=== PATIENT | male | born 1970 | race Caucasian/White ===

== ENCOUNTER 2019-05-25 05:40 | Emergency (ER) | payer MEDICAID, OTHER ==
[~2019-05-25] VITALS: Ht 172.7 cm; Wt 63.5 kg
[2019-05-25 05:45] VITALS: BP 106/72
== END 2019-05-25 08:05 | disposition left against medical advice (07) ==
LOC: EDBD 05:40 → ER 05:42
DX: R09.81 Nasal congestion (principal); Z53.21 Procedure and treatment not carried out due to patient leaving prior to being seen by health care provider

== ENCOUNTER 2019-08-15 23:22 | Emergency (ER) | payer MEDICAID ==
[~2019-08-15] VITALS: Ht 172.7 cm; Wt 47.6 kg
[2019-08-16 00:05] VITALS: BP 112/83
== END 2019-08-16 06:31 | disposition left against medical advice (07) ==
LOC: ER 23:26
DX: F20.9 Schizophrenia, unspecified (principal); F14.10 Cocaine abuse, uncomplicated; F15.10 Other stimulant abuse, uncomplicated; F32.9 Major depressive disorder, single episode, unspecified

== ENCOUNTER 2019-09-15 22:11 | Emergency (ER) | payer MEDICAID ==
[~2019-09-15] VITALS: Ht 177.8 cm; Wt 65.8 kg
[2019-09-15 22:22] VITALS: BP 136/87
== END 2019-09-16 04:16 | disposition left against medical advice (07) ==
LOC: EDBD 22:11 → ER 22:16
DX: Z04.6 Encounter for general psychiatric examination, requested by authority (principal); Z53.21 Procedure and treatment not carried out due to patient leaving prior to being seen by health care provider

== ENCOUNTER 2021-11-25 23:42 | Emergency (ER) | payer MEDICAID, OTHER ==
[~2021-11-25] VITALS: Ht 165.1 cm; Wt 63.5 kg
[2021-11-26 00:25] VITALS: BP 116/77
== END 2021-11-26 03:47 | disposition left against medical advice (07) ==
LOC: EDBD 23:42 → ER 23:45
DX: R06.02 Shortness of breath (principal); R05.9 Cough, unspecified; Z53.21 Procedure and treatment not carried out due to patient leaving prior to being seen by health care provider
CPT/HCPCS: 71045; 93005

== ENCOUNTER 2022-06-22 14:58 | Emergency (ER) | payer MEDICAID ==
[~2022-06-22] VITALS: Ht 172.7 cm; Wt 65.0 kg
[2022-06-22 16:37] VITALS: BP 120/54
== END 2022-06-22 18:15 | disposition left against medical advice (07) ==
LOC: ER 14:58
DX: Z48.00 Encounter for change or removal of nonsurgical wound dressing (principal); Z53.21 Procedure and treatment not carried out due to patient leaving prior to being seen by health care provider

== ENCOUNTER 2022-06-28 03:37 | Emergency (ER) | payer MEDICAID ==
[~2022-06-28] VITALS: Ht 170.2 cm; Wt 75.0 kg
[2022-06-28 05:15] VITALS: BP 136/74
== END 2022-06-28 07:21 | disposition home or self-care (01) ==
LOC: ER 03:41
DX: F20.9 Schizophrenia, unspecified (principal); F17.210 Nicotine dependence, cigarettes, uncomplicated; Z76.0 Encounter for issue of repeat prescription

== ENCOUNTER 2024-10-01 00:23 | Emergency (ER) | payer MEDICAID ==
[~2024-10-01] VITALS: Ht 172.7 cm; Wt 61.9 kg
[2024-10-01 01:27] LABS: COVID19 ANTIGEN SOFIA FIA NEGATIVE (NEGATIVE); Rapid Influenza A Negative (Negative); Rapid Influenza B Negative (Negative)
[2024-10-01 01:42] VITALS: BP 98/53; PULSE 67; RESP 22; TEMP 98; O2SAT 95
[2024-10-01] MEDS ORDERED: AUG875T PO (01:53)
[2024-10-01] MEDS ORDERED: METH4PAK PO (01:53)
--- NOTE | 2024-10-01 01:53 | ED.PDOC ---
SOB-HPI HPI Comments This is a 54-year-old homeless male presents to the ED chief complaint flu-like symptoms times 3 weeks. Patient reports cough, nasal congestion, and subjective fevers. 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 Information Source: Patient Mode of Arrival: Ambulatory Past Medical History PAST MEDICAL HISTORY: Depression, Schizophrenia Surgical History: Denies all surgeries Family History Family History: Unknown Social History Smoker: Cigarettes Alcohol: Denies ETOH Use Drugs: Cocaine, Methamphetamine Physical Exam General Appearance: No Apparent Distress, Normal HEENT: Pharyngeal Erythema, TMs Normal Neck: Full Range of Motion, Non-Tender Respiratory: Lungs Clear, No Respiratory Distress, Normal Breath Sounds Cardiovascular: No Edema, No JVD, No Murmur, No Gallop, Normal Peripheral Pulses, Regular Rate/Rhythm Breast Exam: Deferred Gastrointestinal: No Organomegaly, Non Tender, No Pulsatile Mass, Normal Bowel Sounds, Soft Genitalia: Deferred Pelvic: Deferred Rectal: Deferred Extremities: Normal capillary refill, Normal inspection, Normal range of motion, Non-tender, No pedal edema Musculoskeletal : Apperance: Normal Neurologic: Alert, president [employer] II-XII nml as Tested, No Motor Deficits, Normal Affect, Normal Mood, No Sensory Deficits Cerebellar Function: Normal Reflexes: Normal Skin: Dry, Normal Color, Warm Lymphatic: No Adenopathy Was a procedure done? Was a procedure done?: No Differential Dx Differential Diagnosis: Pneumonia, Allergic Rhinitis, Pharyngitis, URI X-Ray, Labs, Meds, VS Vital Signs Date Time Temp Pulse Resp B/P (MAP) Pulse Ox O2 Delivery O2 Flow Rate FiO2 10/01/24 01:42 98.0 67 20 98/53 (68) 95 98.0 10/01/24 01:42 67 22 95 Room Air 10/01/24 00:43 97.4 74 22 128/77 (94) 94 Lab Test 10/01/24 00:45 Range/Units Influenza Type A Antigen Negative Negative Influenza Type B Antigen Negative Negative SARS-CoV-2 Antigen (Rapid) Negative NEGATIVE X-Ray, Labs, Meds, VS Comment Influenza and COVID swabs negative. Likely bacterial we will start trial of Augmentin and Medrol Dosepak. Advised patient to rest increase p.o. fluids with electrolytes. [id number] Tylenol or Motrin as needed for pain or fever per labeled dosing instructions. ER return precautions given patient indicated understanding agrees with discharge plan of care. Time of 1ST Reevaluation: 01:51 Reevaluation 1ST: Improved Patient Education/Counseling: Diagnosis, Treatment, Prognosis, Need For Follow Up Family Education/Counseling: No Family Present Departure 1 Departure Time of Disposition: :51 Impression: Primary Impression: URI (upper respiratory infection) Qualified Codes: J06.9 - Acute upper respiratory infection, unspecified Disposition: HOME / SELF CARE / HOMELESS Condition: Stable e-Prescriptions Methylprednisolone (Medrol Dosepak) 4 Mg Bhavin 4 MG PO UD for 6 Days, #21 TAB UAD Prov: ESTRELLA RUBIN 10/01/24 Amoxicillin & Pot Clavulanate (AUGMENTIN TABLET) 875 Mg Tb 875 MG PO BID for 7 Days, #14 TAB Prov: ESTRELLA RUBIN 10/01/24 Discharged With: Self Critical Care Note Critical Care Time?: No Stability Stability form required: No Heart Score Heart Score: Heart Score Response (Comments) Value History N/A 0 EKG N/A 0 Age 45-64 1 Risk Factors N/A 0 Troponin N/A 0 Total 1 ESTRELLA RUBIN Oct 01, 2024 01:53
== END 2024-10-01 01:57 | disposition home or self-care (01) ==
LOC: ER 00:23
DX: J06.9 Acute upper respiratory infection, unspecified (principal); F20.9 Schizophrenia, unspecified; F32.9 Major depressive disorder, single episode, unspecified; F17.210 Nicotine dependence, cigarettes, uncomplicated; R05.9 Cough, unspecified; R50.9 Fever, unspecified; Z20.822 Contact with and (suspected) exposure to COVID-19
CPT/HCPCS: 36415; 87426; 87804

== ENCOUNTER 2024-10-30 17:52 | Emergency (ER) | payer MEDICAID ==
[~2024-10-30] VITALS: Ht 175.3 cm; Wt 59.0 kg
[2024-10-30 17:54] VITALS: BP 130/92; PULSE 94; RESP 18; O2SAT 94
--- NOTE | 2024-10-30 18:43 | ED.PDOC ---
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, Medications, Allergies Information Source: Patient Mode of Arrival: EMS Past Medical History PAST MEDICAL HISTORY: Depression, Schizophrenia Surgical History: Denies all surgeries Family History Family History: Unknown Social History Smoker: Cigarettes Alcohol: Denies ETOH Use Drugs: Cocaine, Methamphetamine Constitutional: denies: chills, diaphoresis, fatigue, fever, malaise, sweats, weakness, others EENTM: denies: blurred vision, double vision, ear bleeding, ear discharge, ear drainage, ear pain, ear ringing, eye pain, eye redness, hearing loss, mouth pain, mouth swelling, nasal discharge, nose bleeding, nose congestion, nose pain, photophobia, tearing, throat pain, throat swelling, voice changes, others Respiratory: denies: cough, hemoptysis, orthopnea, SOB at rest, shortness of breath, SOB with excertion, stridor, wheezing, others Cardiovascular: denies: chest pain, dizzy spells, diaphoresis, Dyspnea on exertion, edema, irregular heart beat, left arm pain, lightheadedness, palpitations, PND, syncope, others Gastrointestinal: denies: abdomen distended, abdominal pain, blood streaked bowels, constipated, diarrhea, dysphagia, difficulty swallowing, hematemesis, melena, nausea, poor appetite, poor fluid intake, rectal bleeding, rectal pain, vomiting, others Genitourinary: denies: burning, dysuria, flank pain, frequency, hematuria, incontinence, penile discharge, penile sore, pain, testicle pain, testicle swelling, urgency, others Neurological: denies: dizziness, fainting, headache, left sided numbness, left sided weakness, numbness, paresthesia, pre-existing deficit, right sided numbness, right sided weakness, seizure, speech problems, tingling, tremors, weakness, others Musculoskeletal: denies: back pain, gout, joint pain, joint swelling, muscle pain, muscle stiffness, neck pain, others Integumetry: denies: bruises, change in color, change in hair/nails, dryness, laceration, lesions, lumps, rash, wounds, others Allergic/Immunocompromised: denies: Difficulty Healing, Frequent Infections, Hives, Itching, others Hematologic/Lymphatic: denies: anemia, blood clots, easy bleeding, easy bruising, swollen glands, others Endocrine: denies: excessive hunger, excessive sweating, excessive thirst, excessive urination, flushing, intolerance to cold, intolerance to heat, unexplained weight gain, unexplained weight loss, others Psychiatric: denies: anxiety, bipolar disorder, depression, hopeless, panic disorder, schizophrenia, sleepless, suicidal, others Physical Exam General Appearance: No Apparent Distress, Normal HEENT: Normal ENT Inspection, Pharynx Normal, TMs Normal Neck: Full Range of Motion, Non-Tender Respiratory: Lungs Clear, No Respiratory Distress, Normal Breath Sounds Cardiovascular: No Edema, No JVD, No Murmur, No Gallop, Normal Peripheral Pulses, Regular Rate/Rhythm Breast Exam: Deferred Gastrointestinal: No Organomegaly, Non Tender, No Pulsatile Mass, Normal Bowel Sounds, Soft Genitalia: Deferred Pelvic: Deferred Rectal: Deferred Extremities: Normal capillary refill, Normal inspection, Normal range of motion, Non-tender, No pedal edema Musculoskeletal : Apperance: Normal 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 Was a procedure done?: No Psych Differential Dx Psych. Differential Dx: Anxiety OD Differential Dx: Alcohol Abuse, Bipolar Disorder, Delirium Suicidal Differential Dx: Depression, Schizoprenia X-Ray, Labs, Meds, VS Vital Signs Date Time Temp Pulse Resp B/P (MAP) Pulse Ox O2 Delivery O2 Flow Rate FiO2 10/30/24 17:54 98.3 94 18 130/92 (105) 94 Reevaluation 1ST: Improved Patient Education/Counseling: Diagnosis, Treatment, Prognosis, Need For Follow Up Family Education/Counseling: No Family Present Departure 1 Departure Time of Disposition: 23:11 Impression: Primary Impression: Encounter for wellness examination in adult Disposition: HOME / SELF CARE / HOMELESS Condition: Stable Discharged With: Self Critical Care Note Critical Care Time?: No Stability Stability form required: No ESTRELLA RUBIN 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
== END 2024-10-31 01:14 | disposition home or self-care (01) ==
LOC: ER 17:52 → EDBD 17:52 → EDUNIT# 17:52 → ER 10-31 01:09
DX: Z00.00 Encounter for general adult medical examination without abnormal findings (principal); F32.9 Major depressive disorder, single episode, unspecified; F20.9 Schizophrenia, unspecified; F17.210 Nicotine dependence, cigarettes, uncomplicated; F15.90 Other stimulant use, unspecified, uncomplicated

== ENCOUNTER 2024-10-31 15:32 | Emergency (ER) | payer MEDICAID ==
[~2024-10-31] VITALS: Ht 172.7 cm; Wt 62.8 kg
[2024-10-31 16:01] VITALS: BP 129/72; RESP 24; O2SAT 89
[2024-10-31 16:02] VITALS: PULSE 87
--- NOTE | 2024-10-31 16:19 | ECG ---
[facility] Test Date: 2024-10-31 Test Time: 16:02:22 Pat Name: SUSIE ART Department: ER Room: Gender: M Machine Inspector: LIBRA : 1970 Requested By: TYREL MAYER Order Number: [id number] Reading MD: Measurements Intervals [place] Rate: 87 P: 54 LA: 146 QRS: 29 QRSD: 87 T: 70 QT: 339 QTc: 408 Interpretive Statements Sinus rhythm Anteroseptal infarct, age indeterminate Baseline wander in lead(s) V6 Please click the below link to view image of tracing.
--- NOTE | 2024-10-31 17:22 | DVH ---
INDICATION: sob/cough TECHNIQUE: Frontal view of the chest. COMPARISON: CHEST XRAY 1 VIEW on DOS: 11/26/21, CXR1 on DOS: 11/26/21 FINDINGS: . The heart and mediastinal contours are grossly unremarkable. There is no evidence of pleural disea se. The lungs are clear. The bony structures of the chest are intact without fracture. IMPRESSION: 1. No evidence of acute disease.
--- NOTE | 2024-10-31 18:44 | ED.PDOC ---
SOB-HPI HPI Comments 5HPI: Poor Historian. 54 y.o homeless male presents to the ED for a chief complaint of SOB that has been ongoing for a couple of years. Patient mentions wanting a motel voucher to rest as he is currently homeless. Patient denies any other symptoms or pain. He denies substance, alcohol or tobacco use. Vitals BP: 129/72 HR: 94 Temp: 97.9 F RR: 24 SPO2: 93-94% Room air Past medical history: Bipolar disorder, Depression, right shoulder fracture , asthma emphysema Past surgical history: Denies Allergies: Denies REVIEW OF SYSTEMS: CONSTITUTIONAL: Denies acute: fever, diaphoresis, chills, generalized weakness. HEAD: Denies acute: headache, photophobia Eyes: Denies acute: Double vision, vision loss, eye pain, eye discharge. EARS: Denies acute: tinnitus, hearing loss, ear discharge, ear pain, THROAT: Denies acute: sore throat, swelling, difficulty swallowing , pain with swallowing, change in voice. NECK: Denies acute: neck pain, neck swelling, stiff neck. HEART: Denies acute : chest pain, palpitations, LUNGS: Denies acute: wheezing, hemoptysis ABDOMEN: Denies acute: abdominal pain, Nausea, Vomiting, diarrhea, melena , hematemesis, hematochezia SKIN: Denies acute: rash, redness, lesions, itchiness. EXTREMITIES: Denies acute: calf pain, numbness, tingling, weakness, denies pain in extremity. Denies acute: Low back pain. Neuro: Denies acute: focal neurological deficit, motor or sensory focal neurological deficit, tremors, seizure like activity, confusion, dizziness, change in mental status, loss of bowel or bladder function, cauda equina like symptoms. : Denies acute: dysuria, hematuria, flank pain, increase in urinary frequency. PSYCH: Denies acute: hallucination, suicidal ideation, homicidal ideation. PHYSICAL EXAM: General: no acute distress, awake and alert. Very poor hygiene Head: normocephalic, atraumatic. Neck: supple, trachea is midline, no swelling. Throat: Normal phonation. Eyes:, no erythema, no purulent discharge, no proptosis, no icterus. Heart: regular rate, regular rhythm, no significant murmur appreciated. Lungs: no apparent respiratory distress, Able to speak in full sentences. No wheezing, no rhonchi, no crackles. No stridors Clear to auscultation bilaterally. Abdomen: non tender to palpation, non distended, soft, no guarding, no rebound, + bowel sounds. Neuro: Awake, Alert, oriented to name, self, situation, follows commands GCS=15. Speech is normal. Skin: no petechia, no purpura, no cyanosis, non-pale, not jaundice. Lower extremities: --no - Pitting edema no deformity, no focal swelling, no calf TTP. Makes eye contact. moves all four extremities. Face: no apparent facial droop. Ambulating in the ED independently. ED COURSE: Chief Complaint: Shortness of Breath Time Seen by MD: 18:33 Primary Care Provider: denies Reviewed notes: Nurses Notes, Allergies Information Source: Patient Mode of Arrival: Ambulatory Past Medical History PAST MEDICAL HISTORY: Depression, Schizophrenia Surgical History: Denies all surgeries Family History Family History: Unknown Social History Smoker: Cigarettes Alcohol: Denies ETOH Use Drugs: Cocaine, Methamphetamine Was a procedure done? Was a procedure done?: No Differential Dx Differential Diagnosis: Asthma, Bronchitis, Respiratory Distress, Other (DDx include ACS, unstable angina, anxiety, PE, pneumothroax, neoplasm, cardiac ischemia, COPD, asthma, CHF, pleural effusion, tobacco abuse, pneumonia, hypoxia, hypercapnia, anemia., infection/sepsis., pulmonary edema. Asthma, Cardiac tamponade, infection.) X-Ray, Labs, Meds, VS Vital Signs Date Time Temp Pulse Resp B/P (MAP) Pulse Ox O2 Delivery O2 Flow Rate FiO2 10/31/24 16:02 87 10/31/24 16:01 97.9 94 24 129/72 (91) 89 Time of 1ST Reevaluation: 18:41 Reevaluation 1ST: Unchanged Patient Education/Counseling: Diagnosis, Treatment Family Education/Counseling: No Family Present Comments Patient refused any medical evaluation labs. Labs could not convince him neither could we. The charge nurse tried as well. Patient was not to be found. Patient eloped. He is homeless. Departure 1 Departure Time of Disposition: 21:58 Impression: Primary Impression: Respiratory symptoms Additional Impressions: Homelessness Eloped from emergency department Disposition: 07 LEFT AWOL/ELOPED Condition: Other Discharged With: Self Critical Care Note Critical Care Time?: No I personally scribed for TYREL MAYER DO ([email or web address]) on 10/31/24 at 18:44. Electronically submitted by Teri Nagel ([facility]). TYREL MAYER DO Oct 31, 2024 18:44
== END 2024-10-31 21:40 | disposition left against medical advice (07) ==
LOC: ER 15:32
DX: R09.89 Other specified symptoms and signs involving the circulatory and respiratory systems (principal); F32.A Depression, unspecified; F20.9 Schizophrenia, unspecified; F17.210 Nicotine dependence, cigarettes, uncomplicated
CPT/HCPCS: 71045; 93005

== ENCOUNTER 2024-11-01 02:43 | Emergency (ER) | payer MEDICAID ==
[~2024-11-01] VITALS: Ht 172.7 cm; Wt 59.9 kg
[2024-11-01] MEDS: ALBUTEROL SULF 2.5 MG/0.5ML(0.5%) NEB SOLN NEB ONE (03:38)
[2024-11-01] MEDS: IPRATROPIUM BROM 0.5 MG/2.5ML INH SOL NEB ONE (03:38)
[2024-11-01 04:00] VITALS: BP 135/86; PULSE 110; RESP 18; TEMP 98; O2SAT 94
--- NOTE | 2024-11-01 04:25 | DVH ---
CHEST RADIOGRAPH Indication: sob Technique: Single frontal view of the chest was obtained Comparison: XY CHEST PORTABLE on DOS: 10/31/24 FINDINGS: Lines and Tubes: None Lungs: Bilateral interstitial prominence. No focal consolidation. Pleura: No effusion. No pneumothorax. Cardiomediastinal contours: Unremarkable Bones: No acute osseous abnormality. IMPRESSION: 1. Pulmonary edema.
--- NOTE | 2024-11-01 04:44 | ED.PDOC ---
SOB-HPI HPI Comments 54-year-old male brought in by self complaining of shortness of breath for the last 3 weeks, worse today. He states he has been coughing, but denies fever, chest pain or edema. He was seen in the ED yesterday and diagnosed with walking pneumonia. Chief Complaint: Cough Time Seen by MD: 03:23 Primary Care Provider: denies Mode of Arrival: Ambulatory Past Medical History PAST MEDICAL HISTORY: Depression, Schizophrenia Surgical History (Other): Tonsillectomy, clavicle surgery Family History Family History: Unknown Social History Smoker: Cigarettes Alcohol: Denies ETOH Use Drugs: Cocaine, Methamphetamine Lives In: Homeless All Other Systems: Reviewed and Negative (Comprehensive systems review obtained and negative except for what is stated in the HPI.) Physical Exam General Appearance: Mild Distress HEENT: PERRL/EOMI Neck: Full Range of Motion, Normal Inspection Respiratory: No Accessory Muscle Use, Respiratory Distress, Rhonchi, Wheezing Cardiovascular: No Edema, No JVD, Regular Rate/Rhythm Breast Exam: Deferred Gastrointestinal: Non Tender, Soft Genitalia: Deferred Pelvic: Deferred Rectal: Deferred Extremities: Normal inspection, Normal range of motion, Non-tender, No pedal edema Neurologic: Alert (Oriented x4), Other (Agitated. Ambulatory. No gross focal deficit.) Cerebellar Function: NOT DONE Reflexes: NOT DONE Skin: Dry, Normal Color, Warm Lymphatic: NOT DONE Was a procedure done? Was a procedure done?: No Differential Dx Differential Diagnosis: Asthma, Bronchitis, CHF, COPD, Myocardial infarction, Pneumonia, Pneumothorax, Pulmonary Embolism, URI X-Ray, Labs, Meds, VS Vital Signs Date Time Temp Pulse Resp B/P (MAP) Pulse Ox O2 Delivery O2 Flow Rate FiO2 11/01/24 04:00 98.0 110 18 135/86 (102) 94 98.0 11/01/24 03:40 20 95 Nasal Cannula* 6 44 11/01/24 02:51 97.8 94 20 113/73 (86) 86 11/01/24 02:51 20 86 Room Air* 0 21 Current Medications Medications (Trade) Dose Ordered Sig/Cindi Route Start Time Stop Time Status Last Admin Albuterol (Ventolin Medneb) 5 mg ONCE ONCE NEB 11/01/24 03:30 11/01/24 03:31 DC 11/01/24 03:38 Ipratropium [place] (Atrovent Medneb) 0.5 mg ONCE ONCE NEB 11/01/24 03:30 11/01/24 03:31 DC 11/01/24 03:38 X-Ray, Labs, Meds, VS Comment 54-year-old male history of depression and schizophrenia brought in by self co mplaining of shortness of breath for the last 3 weeks, worse today. Vitals remarkable for oxygen saturation 86% on room air- hypoxic Exam remarkable for mild respiratory distress, bilateral rhonchi and wheezes Rhythm strip independently interpreted by me: Sinus rhythm, rate 94, no ectopy. Chest x-ray was ordered, however patient refused CBC, basic metabolic panel, BNP, troponin, lactate, blood cultures, influenza and COVID tests ordered, however patient refused. Patient treated with the following in the ED: Albuterol 5 mg/Atrovent 0.5 mg nebulized Patient was noted to be masturbating in the treatment area. When nurses asked him to stop, pt became agitated and combative. He continued to refuse labs and imaging and stated he was going to leave. He eloped from the ED escorted by security. Time of 1ST Reevaluation: 04:15 Reevaluation 1ST: Improved Patient Education/Counseling: Other (pt eloped) Family Education/Counseling: No Family Present Departure 1 Departure Time of Disposition: 04:15 Impression: Primary Impression: Eloped from emergency department Additional Impressions: Bronchospasm Hypoxia Disposition: 07 LEFT AWOL/ELOPED Condition: Fair Discharged With: Self Critical Care Note Critical Care Time?: No Stability Stability form required: No Heart Score Heart Score: Heart Score Response (Comments) Value History N/A 0 EKG N/A 0 Age N/A 0 Risk Factors N/A 0 Troponin N/A 0 Total 0 ILSA ZAVALA MD Nov 01, 2024 04:44
== END 2024-11-01 04:15 | disposition left against medical advice (07) ==
LOC: ER 02:43
DX: J98.01 Acute bronchospasm (principal); R09.02 Hypoxemia; R05.9 Cough, unspecified; F17.210 Nicotine dependence, cigarettes, uncomplicated; F20.9 Schizophrenia, unspecified; F32.A Depression, unspecified; Z53.29 Procedure and treatment not carried out because of patient's decision for other reasons; Z59.00 Homelessness unspecified; Z98.890 Other specified postprocedural states
CPT/HCPCS: 71045; 94640